=== PATIENT | female | born 1995 | race Two or more races ===

== ENCOUNTER 2022-04-10 02:18 | Emergency (ER) | payer SELFPAY ==
[2022-04-10] MEDS ORDERED: KETOROLAC 30 MG/ML VIAL IVP STA (03:26)
[2022-04-10] MEDS ORDERED: SODIUM CHLORIDE 0.9% 1,000 ML IV STA (03:26)
--- NOTE | 2022-04-10 03:36 | ED Physician Documentation ---
History of Present Illness - Stated complaint Stated Complaint: HEAD PAIN - Chief complaint Chief Complaint: General - History obtained from History obtained from: Patient - Additonal information Additional information: Patient is a 26-year-old female with no significant past medical history presenting for evaluation of headache, fever, body aches and rash. She recently returned from the [facility] on March 31. Her symptoms started on April 03. The initially started with intermittent fevers. She has been having frontal headaches that are throbbing in nature for the last 6 days. It does improve with ibuprofen and acetaminophen.Yesterday she started with a rash. She was seen at urgent care and a COVID test was negative. She expresses concerns for dengue fever. She has had nausea but no vomiting or diarrhea. She denies abdominal pain, coughing, congestion or difficulty breathing. She is currently on her menstrual cycle. She denies dysuria.She denies any bleeding issues. Review of Systems Constitutional: reports: Fever, Myalgias Nose: denies: Congestion Throat: denies: Sore throat Cardiac: denies: Chest pain / pressure, Palpitations Respiratory: denies: Dyspnea, Cough GI: reports: Nausea. denies: Abdominal Pain, Vomiting : denies: Dysuria, Hematuria Skin: reports: Rash Musculoskeletal: denies: Extremity pain, Extremity swelling Neurologic: reports: Headache. denies: Generalized weakness, Syncope PD PAST MEDICAL HISTORY - Present Medications Home Medications: Ambulatory Orders Medication Instructions Recorded Confirmed No Known Home Medications 04/10/22 04/10/22 - Allergies Allergies/Adverse Reactions: Allergies Allergy/AdvReac Type Severity Reaction Status Date / Time metoclopramide [From Reglan] Allergy Cramps Verified 04/10/22 02:29 egg AdvReac Hives Verified 04/10/22 02:29 PD ED PE NORMAL - General General: Alert and oriented X 3, No acute distress, Well developed/nourished - HEENT HEENT: Atraumatic, PERRL, EOMI, Moist mucous membranes, Pharynx benign - Neck Neck: Supple, no meningeal sign, No adenopathy, Other (Full range of motion of neck without pain, can touch chin to chest without difficulty) - Cardiac Cardiac: RRR, No murmur, Strong equal pulses - Respiratory Respiratory: No respiratory distress - Abdomen Abdomen: Normal bowel sounds, Soft, Non tender, Non distended - Derm Derm: Warm and dry, Other (Faint Macular rash to bilateral lower extremities, no involvement of palms or soles) - Extremities Extremities: No edema - Neuro Neuro: Alert and oriented X 3, No motor deficit, Normal speech, Other (Normal gait) Eye Opening: Spontaneous Motor: Obeys Commands Verbal: Oriented GCS Score: 15 - Psych Psych: Normal mood Results - Vitals Vitals: Vital Signs - 24 hr 04/10/22 04/10/22 04/10/22 02:23 02:28 05:52 Temperature 36.2 C L 36.6 C 36.4 C L Heart Rate 98 80 80 Respiratory 18 16 16 Rate Blood Pressure 140/85 H 133/67 H 110/67 O2 Saturation 98 98 99 Oxygen O2 Source Room air - Labs Labs: Laboratory Tests 04/10/22 04/10/22 04/10/22 03:28 03:28 03:48 WBC 4.9 RBC 4.34 Hgb 14.4 Hct 42.4 MCV 97.7 MCH 33.2 H MCHC 34.0 RDW 11.9 L Plt Count 227 MPV 9.0 Neut # (Auto) Not Reportable Lymph # (Auto) Not Reportable Shannon # (Auto) Not Reportable Eos # (Auto) Not Reportable Baso # (Auto) Not Reportable Absolute Nucleated RBC Not Reportable Total Counted 100 Band Neuts % (Manual) 3 Reactive Lymphs % (Man) 6 Abnorm Lymph % (Manual) 0 Nucleated RBC % Not Reportable Neutrophils # (Manual) 1.5 Lymphocytes # (Manual) 3.1 Monocytes # (Manual) 0.2 Eosinophils # (Manual) 0.0 Basophils # (Manual) 0.0 Differential Comment MANUAL DIFFERENTIAL Platelet Estimate NORMAL (130-450,000) RBC Morph Micro Appear NORMAL APPEARANCE Sodium 135 Potassium 3.3 L Chloride 100 L Carbon Dioxide 28 Anion Gap 7.0 BUN 12 Creatinine 0.7 Estimated GFR (MDRD) 100 Glucose 125 H Calcium 9.3 Total Bilirubin 0.4 AST 194 H ALT 183 H Alkaline Phosphatase 70 Total Protein 8.0 Albumin 3.9 Globulin 4.1 Albumin/Globulin Ratio 1.0 Lipase 34 Urine Color YELLOW Urine Clarity CLEAR Urine pH 6.0 Ur Specific [place] 1.025 Urine Protein NEGATIVE Urine Glucose (UA) NEGATIVE Urine Ketones NEGATIVE Urine Occult Blood MODERATE H Urine Nitrite NEGATIVE Urine Bilirubin NEGATIVE Urine Urobilinogen 0.2 (NORMAL) Ur Leukocyte Esterase NEGATIVE Urine RBC 0-5 Urine WBC 0-3 Ur Squamous Epith Cells FEW Squamous Urine Bacteria Rare Urine Mucus Few Strands Ur Microscopic Review INDICATED Urine Culture Comments NOT INDICATED Urine HCG, Qual NEGATIVE PD MEDICAL DECISION MAKING - ED course ED course: Patient presenting for evaluation of recent fevers, headache, rash to lower extremities in setting of travel to the [facility]. Patient is clinically very well-appearing, nontoxic, not ill, ambulatory, normal neuro exam, no signs of meningismus, nonlabored breathing. Her symptoms are suggestive of dengue fever as she suspects. We did discuss possibly obtaining testing for this but it would not result for 6 to 11 days per the lab.As her CBC is normal we have decided to hold off on further testing for dengue. Her electrolytes were also checked. Mild elevation in troponin. No tenderness In the abdomen with specific attention to right upper quadrant palpation.Patient feels much better after IV fluids and medications for her headache here. She remains well- appearing and is comfortable with plan for discharge.She is advised on return precautions. Departure - Departure Disposition: 01 Home, Self Care Clinical Impression: Viral illness, Abnormal LFTs Headache Qualifiers: Headache type: unspecified Headache chronicity pattern: acute headache Intractability: not intractable Qualified Code(s): R51.9 - Headache, unspecified Condition: Stable Instructions: Dengue Fever, ED Headache Migraine Comments: You were evaluated for headache, rash and body aches with recent travel. Your symptoms to suggest dengue fever. Your labs were reviewed. Your hemoglobin, hematocrit and platelets were all normal. Your electrolytes were also checked. Your liver markers are slightly elevated. We did discuss sending a dengue test but the result will not be back for 6 to 11 days. At this time, the result of that test would not change our management and we have agreed not to send the test. I would expect her symptoms to improve over the course of the next week. If you have any worsening symptoms such as abdominal pain, bleeding, weakness, worsening headache, any concerns please return to the emergency department.I would recommend follow-up with your primary care doctor in the next week to recheck your liver markers. Discharge Date/Time: 04/10/22 05:53
[2022-04-10 03:47] LABS: BASOPHILS % (AUTO) 0.6 %; EOSINOPHILS % (AUTO) 1.2 %; HCT - HEMATOCRIT 42.4 % (37.0-47.0); HGB - HEMOGLOBIN 14.4 g/dL (12.0-16.0); LYMPHOCYTES % (AUTO) 59.3 %; MEAN CORPUSCULAR HEMOGLOBIN 33.2 pg (27.0-31.0); MEAN CORPUSCULAR VOLUME 97.7 fL (81.0-99.0); MONOCYTES % (AUTO) 10.5 %; NEUTROPHILS % (AUTO) 28.4 %; PLT - PLATELET COUNT 227 10^3/uL (130-450); RED BLOOD COUNT 4.34 10^6/uL (4.20-5.40); RED CELL DISTRIBUTION WIDTH 11.9 % (12.0-15.0); WHITE BLOOD COUNT 4.9 x10^3/uL (4.8-10.8)
[2022-04-10 03:54] LABS: ALBUMIN 3.9 g/dL (3.2-5.5); BILIRUBIN,TOTAL 0.4 mg/dL (0.2-1.0); CALCIUM 9.3 mg/dL (8.5-10.3); CREATININE 0.7 mg/dL (0.4-1.0); POTASSIUM 3.3 mmol/L (3.5-5.0)
[2022-04-10 03:56] LABS: ABNORMAL LYMPHS % (MANUAL) 0 %
[2022-04-10 04:07] LABS: BILIRUBIN,URINE NEGATIVE (NEGATIVE); CLARITY,URINE CLEAR (CLEAR); GLUCOSE, URINE (UA) NEGATIVE (NEGATIVE); KETONES,URINE (UA) NEGATIVE (NEGATIVE); LEUKOCYTE ESTERASE, URINE NEGATIVE (NEGATIVE); NITRITE,URINE NEGATIVE (NEGATIVE); OCCULT BLOOD,URINE MODERATE (NEGATIVE); PROTEIN,URINE NEGATIVE (NEGATIVE); UROBILINOGEN,URINE 0.2 (NORMAL) E.U./dL (NORMAL)
[2022-04-10 04:09] LABS: HCG UR QUAL NEGATIVE
[2022-04-10 04:15] LABS: BACTERIA,URINE Rare /HPF (None Seen); MUCUS,URINE Few Strands; RBC,URINE 0-5 /HPF (0-5); SQUAMOUS EPITHELIAL CELL,UR FEW Squamous (<= Few); WBC,URINE 0-3 /HPF (0-5)
[2022-04-10 04:19] LABS: BAND NEUTROPHILS % (MANUAL) 3 %; DIFFERENTIAL COMMENT MANUAL DIFFERENTIAL; LYMPHOCYTES # (MANUAL) 3.1 10^3/uL (1.5-3.5); LYMPHOCYTES % (MANUAL) 58 %; MONOCYTES # (MANUAL) 0.2 10^3/uL (0.0-1.0); NEUTROPHILS # (MANUAL) 1.5 10^3/uL (1.5-6.6); PLATELET ESTIMATE, MANUAL NORMAL (130-450,000) (NORMAL); RBC MORPHOLOGY (MULTIPLE) NORMAL APPEARANCE (NORMAL); REACTIVE LYMPHS % (MANUAL) 6 %
[2022-04-10] MEDS ORDERED: ACETAMINOPHEN 1,000 MG/100 ML 1,000 MG/100 ML BAG IV ONE (04:42)
[2022-04-10] MEDS ORDERED: ONDANSETRON 4 MG/2 ML VIAL IVP STA (04:42)
[2022-04-10] MEDS ORDERED: POTASSIUM CHLORIDE 20 MEQ TABLET PO STA (04:42)
[2022-04-10] MEDS ORDERED: diphenhydrAMINE INJ 50 MG/ML VIAL IVP STA (04:42)
[2022-04-10] MEDS ORDERED: ACETAMINOPHEN 325 MG TABLET PO STA (04:53)
[2022-04-10 05:53] VITALS: BP 110/67
[2022-04-10 06:19] LABS: B. PARAPERTUSSIS- RESP PCR PAN NOT DETECTED; B. PERTUSSIS- RESP PCR PANEL NOT DETECTED; C. PNEUMONIAE- RESP PCR PANEL NOT DETECTED; CORONAVIRUS 229E-RESP PCR NOT DETECTED; CORONAVIRUS HKU1-RESP PCR NOT DETECTED; CORONAVIRUS NL63-RESP PCR NOT DETECTED; CORONAVIRUS OC43-RESP PCR NOT DETECTED; HUMAN METAPNEUMOVIRUS NOT DETECTED; INFLUENZA A- RESP PCR PANEL NOT DETECTED; INFLUENZA B - RESP PCR PANEL NOT DETECTED; M. PNEUMONIAE- RESP PCR PANEL NOT DETECTED; PARAINFLUENZA VIRUS 1 NOT DETECTED; PARAINFLUENZA VIRUS 2 NOT DETECTED; PARAINFLUENZA VIRUS 3 NOT DETECTED; PARAINFLUENZA VIRUS 4 NOT DETECTED; RHINOVIRUS/ENTEROVIRUS NOT DETECTED; RSV- RESP PCR PANEL NOT DETECTED; SARS-CoV-2 -RESP PCR PANEL NOT DETECTED
== END 2022-04-10 05:53 | disposition home or self-care (01) ==
LOC: ED 02:18
DX: J06.9 Acute upper respiratory infection, unspecified (principal); Z20.822 Contact with and (suspected) exposure to COVID-19
CPT/HCPCS: 36415; 80053; 81001; 81025; 83690; 85025; 87633; 96374; 96375; 99283; 99284; A9270; J1200; 81003; 87086